=== PATIENT | female | born 1980 | race Hispanic/Latino ===

== ENCOUNTER 2019-07-07 08:18 | Day surgery (SDC) | payer OTHER, MEDICAID, SELFPAY ==
[2019-06-10 08:39] VITALS: BMI 33.6
[2019-07-07] VITALS (11 sets, daily range): BP systolic 94–128; BP diastolic 57–86; PULSE 58–86; RESP 10–16; TEMP 36.1–36.8; O2SAT 96–100; BMI 33.6
--- NOTE | 2019-07-07 | PATH_ITS ---
[facility] Accession Number: [id number] . 01 Material submitted: . uterus - UTERUS AND BILATERAL FALLOPIAN TUBERS . 01 Clinical history: . LSH W/JULIAN SALPINGECTOMY . 02 Diagnosis: Uterus and Bilateral Fallopian Tubes, Hysterectomy, Bilateral Salpingectomy: 1. Adenomyosis. 2. Predominantly denuded endometrium with areas of inactive/noncycling endometrium. 3. One fallopian tube with paratubal cysts. 4. Second fallopian tube with no diagnostic abnormality. 5. No evidence of neoplasia or hyperplasia. MRV 07/10/2019 1400 Local . 02 Electronically signed: . Anne Ghosh MD, Pathologist NPI- [id number] . 01 Gross description: . Received in formalin, labeled uterus and fallopian tubes, is an upper uterine body in multiple pieces (36 grams, 6.0 x 3.5 x 3.5 cm in aggregate) and two fimbriated fallopian tubes (tube #1: length-3.0 cm, diameter-0.3 cm; tube #2: length-3.3 cm, diameter-0.4 cm). The ovaries and cervix are absent. The tissue cannot be oriented and the endometrium and myometrium cannot be grossly measured. The parenchyma is rasmussen and unremarkable. The serosa is rasmussen smooth and shiny. The fallopian tubes have salazar-rasmussen smooth shiny serosa and rasmussen unremarkable lumens. Section code: (A1-A4) parenchyma, printing supplies sales representative; (A5) fallopian tube #1, printing supplies sales representative serial sections; (A6) fimbria #1, bivalved, entirely submitted; (A7) fallopian tube #2, printing supplies sales representative serial sections; (A8) fimbria #2, bivalved, entirely submitted. ([id number]) A9-A12 Additional printing supplies sales representative sections. /MRV 07/10/2019 1541 Local . 02 Pathologist provided ICD-10: R10.2 . 02 CPT . 162592 Performed at: [facility] [address] [id number] MD Elijah Lowe MD Phone: [phone] Performed at: 02 [facility] [address] [place], [place] [id number] MD Anne Ghosh MD Phone: [phone]
[2019-07-07] MEDS: LACTATED RINGERS 1,000 ML 100 ML IV ×2 (09:07→12:55)
[2019-07-07] MEDS: CEFAZOLIN 2 GM/100 ML FROZ.PIGGY IV (10:34)
--- NOTE | 2019-07-07 10:40 | PM.PREOP ---
Pre-operative Note Interval Note History & Physical reviewed/Exam performed by Physician: Yes Changes to H&P: No
--- NOTE | 2019-07-07 11:19 | SUR.OPER ---
Lithotomy on padded OR bed. [place] Pad Positioner under torso. Head on pillow, arms padded and tucked at sides. Legs secured in padded yellow fins stirrups.
[2019-07-07] MEDS: BUPIVACAINE 0.5% W/ EPI (PF) 10 ML VIAL 30 ML INJ (11:27)
[2019-07-07] MEDS: ROPIVACAINE 0.2% PF 2 MG/ML 10ML AMP 40 ML INJ (11:28)
--- NOTE | 2019-07-07 12:47 | SUR.PHASEI ---
Sat patient up; pt taking ice chips at first and then complains of nausea. Notified Anesthesia
[2019-07-07] MEDS: ONDANSETRON 4 MG/2 ML INJ IV (12:54)
[2019-07-07] MEDS: fentaNYL 100 MCG/2 ML INJ IV (13:08)
[2019-07-07] MEDS: OXYCODONE/ACETAMINOPHEN 5/325 TABLET 1 TAB PO (13:25)
--- NOTE | 2019-07-07 14:03 | SUR.PHASEII ---
Dr. Villegas's office called to clarify d/c instructions. at bedside. Prescription filled by . Lap sites with scabnt amount of shadow drainage, anil pad c/d/i. Intermittent nausea. Has mitchel thomas at bedside.
--- NOTE | 2019-07-07 14:28 | SUR.PHASEII ---
Pt up to use the restroom. Pt walked with sba from . Pt observed to be steady on her feet without any difficultly. Pt urinated 200ml of yellow urine without any difficultly. Pt ambulated back to bed without any difficultly. bed in lowest position and call light given to pt.
--- NOTE | 2019-07-07 14:36 | SUR.PHASEII ---
Katalina-pad observed to have scant amount of red blood and drsg's on abdomen observed to be c/d/i.
--- NOTE | 2019-07-07 14:54 | SUR.PHASEII ---
Ladan returned call, Dr. Villegas's instructions relayed to pt an dher . All voiced an understanding. Pt left when ready and left in stable condition.
--- NOTE | 2019-07-22 15:22 | PM.GYNOP.1 ---
Operative Date/Time/Diagnoses Date of procedure: 07/07/19 Time of procedure: 11:45 Pre-op diagnosis: Post ablation syndrome Pelvic pain Post-op diagnosis: same Procedure & Clinicians Procedure: Procedures Operation Date: 07/07/19 09:45 Actual Procedures Side Surgeon p Laparoscopic Supracervical Hysterectomy W/ Bilateral Salpingectomy Angle Villegas MD Indications: Post ablation syndrome Pelvic pain Surgeon: Angle Villegas Anesthesia Type: General Operative Notes Findings: Eight week size anteverted uterus Normal tubes and ovaries Normal liver gallbladder Normal appendix Closure Type: primary Specimen(s): left tube, right tube and uterus Applied: catheter Estimated blood loss (mL): 75 Blood products transfused: none Procedure in detail: The patient was taken to the operating room where she was placed in the dorsal supine position. After adequate general endotracheal anesthesia was achieved, she was placed in the dorsal lithotomy position, and prepped and draped in the usual sterile fashion. A timeout was performed. A bivalve speculum was placed into the vagina and the anterior lip of the cervix grasped with a single-tooth tenaculum. The cervical os was sequentially dilated until the ZUMI uterine manipulator could pass easily into the endometrial cavity. The single-tooth tenaculum was removed from the anterior lip of the cervix, and the bivalve speculum was removed from the vagina. Attention was then turned to the abdomen where 6 mL of half percent Marcaine with epinephrine were injected in the umbilical fold. A 5 mm incision was made. The Verhees needle was placed into the peritoneal cavity, and its placement confirmed by aspiration and drop test. The Verhees needle was removed. A 5 mm trocar was placed without difficulty. 2 other incisions were made midway between the pubic symphysis and umbilicus after 5 mL of half percent Marcaine with epinephrine were injected. These were 5 mm incisions. Two 5 mm trochars were placed under direct visualization. The right tube was grasped with an atraumatic grasper. Using the plasma kinetic with settings of 40 W the mesosalpinx was cauterized and cut all the way down to the cornua of the uterus. The cornua of the uterus was then grasped with an atraumatic grasper. The utero-ovarian ligaments were cauterized and cut. The round ligament and broad ligament was cauterized and cut with plasma kinetic. Hemostasis was achieved. The bladder flap was created using the plasma kinetic with cautery and cut mcfp across. The uterine arteries on the right side were extensively cauterized with plasma kinetic. All of this was repeated on the left side. The remainder of the bladder flap was created using the plasma kinetic, and the bladder taken down off the lower uterine segment and cervix. Using the Endoloop, the cervix was amputated from the uterus 2 cm above the uterosacral ligaments, after the ZUMI uterine manipulator was removed from the uterus. There was a small amount of bleeding noted from the posterior edge of the cervix, and this was cauterized for hemostasis. A sponge stick was placed into the vagina. 6 mL of half percent Marcaine with epinephrine were injected above the pubic symphysis. A 12 mm trocar was placed. An Endobag was placed through the suprapubic trocar and the uterus placed into the Endobag. The trocar was removed. The Andrew placed into the endobag. The uterus was hand morcellated in approximately 10 pieces. The Endobag was removed from the peritoneal cavity. The pelvis was copiously irrigated with warm normal saline. No bleeding was noted. The instruments are removed from the abdomen. The CO2 was allowed to escape. The suprapubic incision was closed on the fascia with 0 Vicryl. All of the incisions were closed with 4-0 Biosyn in a subcuticular fashion. The moistened sponge stick was removed from the vagina. Sponge, lap, and instrument counts were correct x-2. The patient tolerated the procedure well, was taken to PACU in stable condition. Complications: none Post-operative Condition: stable Disposition: PACU Plan for aftercare: Home after recovery
== END 2019-07-07 15:00 | disposition home or self-care (01) ==
LOC: OR 08:21 → AC 08:22
PROVIDERS: Family Provider Obstetrics & Gynecology; PCP Family Medicine; Visit Provider Obstetrics & Gynecology
PROC: 0UT94ZL Resection of Uterus, Supracervical, Percutaneous Endoscopic Approach (ICD-10-PCS; CPT 58542; principal; 2019-07-07 09:45)
DX: N83.8 Other noninflammatory disorders of ovary, fallopian tube and broad ligament (principal); N80.0 Endometriosis of uterus
CPT/HCPCS: 58542; J0171; J0690; J1100; J1885; J2405; J2795; J3010

== ENCOUNTER → 2021-06-20 16:02 | Outpatient (CLI) | payer OTHER, MEDICAID, SELFPAY ==
[2021-06-20 16:37] LABS: COVID19 -Nasal RAPID Negative (Negative)
== END ==
PROVIDERS: Family Provider Obstetrics & Gynecology; PCP Family Medicine; Visit Provider Obstetrics & Gynecology
DX: Z01.812 Encounter for preprocedural laboratory examination (principal); Z20.822 Contact with and (suspected) exposure to COVID-19
CPT/HCPCS: 87635; C9803

== ENCOUNTER 2021-06-21 08:53 | Day surgery (SDC) | payer OTHER, MEDICAID, SELFPAY ==
[2021-06-09 08:37] VITALS: BMI 35.1
[2021-06-21] VITALS (12 sets, daily range): BP systolic 105–124; BP diastolic 62–81; PULSE 67–87; RESP 12–18; TEMP 36.3–36.7; O2SAT 97–100; BMI 35.1
--- NOTE | 2021-06-21 | PATH_ITS ---
[facility] Accession Number: [id number] . 01 Material submitted: . ovary - BILATERAL OVARIES . 02 Diagnosis: Bilateral Ovaries, Bilateral Salpingo-oophorectomy: First described ovary with degenerating and hemorrhagic corpora lutea and benign cystic follicles (5-10 mm); negative for malignancy. Second described ovary with corpora albicantia, a hemorrhagic corpus luteum cyst (10 mm), a benign serous cyst (3 mm), and benign follicle cysts (3-4 mm); negative for malignancy. V 06/24/2021 1225 Local . 02 Electronically signed: . Akosua Yoo MD, Pathologist NPI- [id number] . 01 Gross description: . The specimen is received in formalin, labeled bilateral ovaries and consists of two ovaries. One ovary weighs 3 grams and measures 2.5 x 2.0 x 1.0 cm and the other ovary weighs 4 grams and measures 3.0 x 1.7 x 1.5 cm. The external surfaces are rasmussen and cerebriform. Sectioning reveals multiple rasmussen smooth-walled serous-filled cysts ranging from 0.3-1.0 cm. No papillary excrescences are identified. The specimen is entirely submitted. . A1-A2: Smaller ovary, bisected. A3-A6: Larger ovary, serially sectioned. ([id number]) /MRV 06/24/2021 1225 Local . 02 Pathologist provided ICD-10: R10.2 . 02 CPT . 673977 Performed at: 01 [facility] [address] [place] [address], [place], [place] [id number] MD Elijah Lowe MD Phone: [phone] Performed at: 02 [facility] [address] [place] [id number] MD Anne Ghosh MD Phone: [phone]
[2021-06-21] MEDS: LACTATED RINGERS 1,000 ML 100 ML IV ×2 (09:31→13:25)
--- NOTE | 2021-06-21 10:39 | SUR.PREOP ---
Spoke with Dr Munoz. Informed MD of patient hx of PONV with Allergy to Reglan and Promethazine who has tolerated and done well with Scopalamine Patch for previous surgeries. See new order.
[2021-06-21] MEDS: SCOPOLAMINE 1 PATCH TOP (10:44)
--- NOTE | 2021-06-21 10:46 | SUR.PREOP ---
pt updated on surgical delay. Call light in reach. Watching TV on phone.
--- NOTE | 2021-06-21 11:49 | P.HP_ITS ---
History of Present Illness History of Present Illness Date Patient Seen: 06/21/21 Time Patient Seen: 11:49 Chief complaint: SD Narrative: Patient is a 40-year-old 6 para 5 with recurrent ovarian cysts and pelvic pain A scan at the [facility] showed a possible fibroid. Patient is status post hysterectomy. Patient History Medical History (Updated 06/21/21 @ 11:58 by Angle Villegas MD) History of ectopic Surgical History H/O abdominoplasty History of hysteroscopy (~2015) History of third molar tooth extraction S/P laparoscopic supracervical hysterectomy S/P laparoscopic surgery (~2015) Status post delivery (06/22/95) Status post tubal ligation Family & Social History Social History: household members spouse,children Tobacco & Substance use: Smoking Status Never smoker alcohol intake current alcohol intake frequency holiday/special occasion Substance Use Type does not use Meds Home Medications and Allergies Home Medications Medication Instructions Recorded Confirmed Type dextroamphetamine-amphetamine 10 15 mg PO DAILY 05/24/21 06/21/21 History mg tablet (Adderall) famotidine 40 mg tablet (Pepcid) 40 mg PO DAILY 05/24/21 06/21/21 History gabapentin 600 mg tablet 600 mg PO BID 05/24/21 06/21/21 History oxycodone-acetaminophen 5 mg-325 0.5 tab PO ONCE PRN tab 05/24/21 06/21/21 History mg tablet (Percocet) naproxen 500 mg tablet 500 mg PO BEDTIME PRN 06/21/21 06/21/21 History Allergies Allergy/AdvReac Type Severity Reaction Status Date / Time Influenza Virus Vaccines Allergy Mild welts Verified 06/21/21 06:46 latex [LATEX] Allergy Mild RASH Verified 05/24/21 14:24 tapentadol [TAPENTADOL] Allergy Mild RASH Verified 05/24/21 14:24 venlafaxine [From Effexor] AdvReac Intermediate palpitation Verified 06/21/21 06:46 metoclopramide AdvReac Mild HALLUCINATI Verified 06/21/21 06:46 [METOCLOPRAMIDE] ONS promethazine [PROMETHAZINE] AdvReac Mild HALLUCINATI Verified 06/21/21 06:46 ONS Exam Vital Signs (past 8 hours): - 06/21/21 09:25 Temperature 97.3 F L Pulse Rate 77 Respiratory Rate 16 Blood Pressure 123/81 Pulse Oximetry 100 Oxygen Delivery Method Room Air Narrative Exam Narrative: HEENT: No thyromegaly, no anterior cervical or supraclavicular lymphadenopathy. Lungs:Clear to auscultation bilaterally, no wheezes. Cardiovascular: Regular rate and rhythm, no murmurs, rubs, or gallops. Abdomen: Well-healed laparoscopy No hepatosplenomegaly. No masses palpable. External genitalia: Normal Vagina: Normal Cervix: Normal well supported Bimanual exam: No masses. Extremities: No edema Assessment & Plan Assessment and plan (1) Ovarian cyst: Status: Acute (2) Pelvic pain: Status: Acute (3) Postcoital bleeding: Status: Acute Assessment & Plan narrative: Assessment: 40-year-old 6 para 5 with recurrent ovarian cyst and pelvic pain Postcoital bleeding Plan: Cautery of the endocervical canal Laparoscopic removal of 1 or both ovaries and lysis of adhesions The risks, benefits, and alternatives to the procedure were explained to the patient. The risks including bleeding, infection, injury to the bowel, bladder, or ureters. She also understands that there is a possibility a clot in the leg or the lung. She understands all of these risks and agrees to proceed. A full par Q was held and consent form was signed. Time Spent With Patient Critical Care time: I spent a total of [] minutes of critical care time on this patient's care today; this time is exclusive of procedural time.
--- NOTE | 2021-06-21 11:59 | PM.PREOP ---
Pre-operative Note COVID-19 COVID-19 status: Negative Result date/Date tested (Pos, Neg/Pending): 06/20/21 Interval Note History & Physical reviewed/Exam performed by Physician: Yes Changes to H&P: No H&P completed within 30 days and has changed as indicated here:: 06/21/21
--- NOTE | 2021-06-21 12:40 | SUR.OPER ---
Lithotomy on padded OR bed, head on pillow, arms secured on padded arm boards at <90 degrees abduction. Legs secured in padded yellow fins stirrups.
[2021-06-21] MEDS: BUPIVACAINE 0.5% (PF) VIAL 30 ML INJ (12:51)
[2021-06-21] MEDS: EPINEPHrine 1 MG/ML SUBCUT (12:53)
--- NOTE | 2021-06-21 13:13 | PM.GYNOP.1 ---
Operative Date/Time/Diagnoses Date of procedure: 06/21/21 Time of procedure: 13:13 Pre-op diagnosis: Recurrent ovarian cysts Pelvic pain Postcoital bleeding Post-op diagnosis: same Procedure & Clinicians Procedure: Procedures Operation Date: 06/21/21 11:15 Actual Procedure Side Surgeon p DX Laparoscopy W/Lysis of Adhesions, Removal of both ovaries (oophorectomy) cautery of endocervical canal Angle Villegas MD Indications: Recurrent ovarian cysts Pelvic pain Postcoital bleeding Surgeon: Angle Villegas Anesthesia Type: General and Local Operative Notes Findings: Left ovary with multiple cyst Normal right ovary Normal appendix 1 adhesion in the right lower quadrant from the bowel to the pelvic sidewall Closure Type: primary Specimen(s): other (Bilateral ovaries) Estimated blood loss (mL): 5 Blood products transfused: none Procedure in detail: After informed consent was obtained, the patient was taken to the operating room where she was placed in the dorsal supine position. After adequate general endotracheal anesthesia was achieved, she was placed in the dorsal lithotomy position, and prepped and draped in the usual sterile fashion. A time-out was performed. A moistened sponge stick was placed into the vagina. Attention was then turned to the abdomen where 6 cc of 0.25% Marcaine with epinephrine were injected in the umbilical fold. A 5 mm incision was made. The Veress needle was placed into the peritoneal cavity, and its placement confirmed by aspiration and drop test. The abdominal cavity was insufflated with 3.4 L of CO2. The Veress needle was removed, and a 5 mm trocar was placed without difficulty. The pelvis and abdomen were examined with the findings noted above. Two other 5 mm incisions were made 4 cm lateral to the midline at the level of the umbilicus after 6 cc of 0.5% Marcaine with epinephrine were injected. Two 5 mm trocars were placed under direct visualization. There was an adhesion in the right lower quadrant. This was grasped with an atraumatic grasper and then cauterized and cut with the PlasmaKinetic. This was between the bowel and the pelvic sidewall. The right ovary was grasped with an atraumatic grasper. The infundibulopelvic ligament on the right side was cauterized and cut with the PlasmaKinetic. Hemostasis was achieved. The left ovary was grasped with an atraumatic grasper. The infundibulopelvic ligament on the left side was cauterized and cut with the PlasmaKinetic. A fourth incision was made above the pubic symphysis, this was 1 in in length. A 12 mm trocar was placed through the incision. A small endobag was placed through the 12 mm trocar and both ovaries were placed into the bag. The trocar was removed and the bag was brought through the incision. The pelvis was irrigated and there was no bleeding noted. All of the instruments and trocars were removed from the abdomen. The fascia on the suprapubic incision was closed with 0 Vicryl in a running fashion. The subcutaneous layer was closed with 2 simple interrupted sutures with 3-0 Vicryl. All of the incisions were closed with 4-0 Monocryl in a subcuticular fashion. Steri-Strips and Allevyn dressings were placed. The sponge stick was removed from the vagina. A bivalve speculum was placed into the vagina. The endocervical canal was measured and was found to be 3 cm long. Using the Bovie, the endocervical canal was cauterized. The bivalve speculum was removed from the vagina. Sponge, lap, and instrument counts were correct x2. The patient tolerated the procedure well, and was taken to PACU in stable condition. Complications: none Post-operative Condition: stable Disposition: PACU Plan for aftercare: Home after recovery
[2021-06-21] MEDS: OXYCODONE/ACETAMINOPHEN 5/325 TABLET 1 TAB PO (13:49)
[2021-06-21] MEDS: ONDANSETRON 4 MG/2 ML INJ IV (14:16)
--- NOTE | 2021-06-21 15:05 | SUR.PHASEII ---
Pt discharged to home after verbalizing readiness for discharge after ambulation indep to BR, steady on feet. Tolerating liquids.
== END 2021-06-21 14:45 | disposition home or self-care (01) ==
PROVIDERS: Family Provider Obstetrics & Gynecology; PCP Family Medicine; Referring Provider Obstetrics & Gynecology; Visit Provider Obstetrics & Gynecology
PROC: (CPT 58661; principal; 2021-06-21 11:15)
DX: N83.10 Corpus luteum cyst of ovary, unspecified side (principal); N83.00 Follicular cyst of ovary, unspecified side; K66.0 Peritoneal adhesions (postprocedural) (postinfection)
CPT/HCPCS: 58661; J0171; J1100; J1885; J2250; J2405; J2704; J3010